=== PATIENT | male | born 2000 | race Two or more races ===

== ENCOUNTER 2024-09-02 08:43 | Emergency (ER) | payer MEDICAID ==
[~2024-09-02] VITALS: Ht 172.7 cm; Wt 72.7 kg
[2024-09-02 08:46] VITALS: BP 117/68; PULSE 72; RESP 16; TEMP 98.4; O2SAT 100
[2024-09-02] MEDS: IBUPROFEN 600 MG TABLET PO ONE (09:55)
[2024-09-02] MEDS: LIDOCAINE 5% TRANSDERMAL PATCH TD ONE (09:55)
== END 2024-09-02 10:01 | disposition home or self-care (01) ==
LOC: EMS 08:43
DX: S46.912A Strain of unspecified muscle, fascia and tendon at shoulder and upper arm level, left arm, initial encounter (principal); X50.0XXA Overexertion from strenuous movement or load, initial encounter; Y93.B3 Activity, free weights; Y92.89 Other specified places as the place of occurrence of the external cause; Y99.8 Other external cause status
CPT/HCPCS: 99283